=== PATIENT | female | born 1990 | race Caucasian/White ===

== ENCOUNTER 2020-11-19 14:28 | Outpatient (REF) | payer OTHER, SELFPAY | END 2020-11-19 14:29 | disposition home or self-care (01) | LOC: HO.LAB 14:28 | PROVIDERS: Visit Provider Internal Medicine | DX: Z20.822 Contact with and (suspected) exposure to COVID-19 (principal) | CPT/HCPCS: C9803; U0003; U0005 ==

== ENCOUNTER 2020-12-17 14:05 | Outpatient (REF) | payer OTHER, SELFPAY ==
[2020-12-17 14:35] LABS: COVID-19 Test Negative (Negative)
== END 2020-12-17 14:06 | disposition home or self-care (01) ==
LOC: HO.LAB 14:05
PROVIDERS: Visit Provider Internal Medicine
DX: Z20.822 Contact with and (suspected) exposure to COVID-19 (principal)
CPT/HCPCS: 36415; 87635; C9803

== ENCOUNTER 2021-07-04 23:29 | Emergency (ER) | payer OTHER, SELFPAY ==
[2021-07-04 23:53] VITALS: BP 139/85; PULSE 75; RESP 16; TEMP 37.1; O2SAT 99; BMI 35.3
[2021-07-05 00:18] LABS: IDNOW Serial# 9DD0AD1C; Strep A Nucleic Acid Negative (Negative)
[2021-07-05 00:22] LABS: COVID-19 Test Negative (Negative)
--- NOTE | 2021-07-05 00:35 | ED.GENADULT ---
HPI - General Adult General Chief complaint: General Medical Stated complaint: Sore throat; Fever Time Seen by Provider: 07/05/21 00:32 Source: patient Mode of arrival: ambulatory Limitations: no limitations History of Present Illness HPI narrative: Patient with no significant past medical history complaining of sore throat dry cough since yesterday no fever no chills no rash no speech problem Related Data Previous Rx's Medication Instructions Recorded benzonatate 200 mg capsule 200 mg PO TID PRN #14 cap 07/05/21 Allergies Allergy/AdvReac Type Severity Reaction Status Date / Time No Known Allergies Allergy Unverified 04/23/20 16:41 Review of Systems Review of Systems: Yes all other systems are reviewed and are negative [facility] Past Medical History Medical History No known health problems Social History Social History Advance Directives: No Advance Directives Information Provided: No Patient : No Physical Exam Vital Signs: Vital Signs: Last Vital Signs Temp 98.7 F 07/04/21 23:53 Pulse 75 07/04/21 23:53 Resp 16 07/04/21 23:53 BP 139/85 07/04/21 23:53 Pulse Ox 99 07/04/21 23:53 Body Mass Index 35.3 Appearance: Alert. Oriented X3. No acute distress. ENT: Pharynx normal. Oral Mucosa moist Neck: Normal inspection. Neck supple. CVS: Normal heart rate and rhythm. Pulses normal. Respiratory: No respiratory distress. Equal air entry bilateral, no wheezing/rales/rhonchi Abdomen: Soft and nontender. Skin: Skin warm and dry. Normal skin color. Normal skin turgor. Extremities: No lower extremity edema. Neuro: Oriented X 3. Medical Decision Making Lab Data Lab results reviewed: Yes I reviewed the patient's lab results. Labs: Lab Results 07/05/21 07/05/21 Range/Units 00:01 00:01 COVID-19 (NOHEMY) Negative (Negative) COVID-19 Clin Com See Note S. pyogenes GrpA LYLE Negative (Negative) Discharge Plan Discharge Clinical Impression: Viral URI Patient Disposition: Home, Self-Care Instructions: Upper Respiratory Infection (ED) Prescriptions: New benzonatate 200 mg capsule 200 mg PO TID PRN (Reason: cough) Qty: 14 RF: 0
[2021-07-05] MEDS: Benzonatate 100 MG CAPSULE 200 MG PO (00:45)
[2021-07-05] MEDS: Lidocaine HCl Viscous 2 % 15 ML SOLUTION MUCOUS MEM (00:47)
== END 2021-07-05 00:51 | disposition home or self-care (01) ==
PROVIDERS: Emergency Provider Internal Medicine; PCP Internal Medicine
DX: J06.9 Acute upper respiratory infection, unspecified (principal); R50.9 Fever, unspecified; J02.9 Acute pharyngitis, unspecified; Z20.822 Contact with and (suspected) exposure to COVID-19
CPT/HCPCS: 36415; 87635; 87651; 99283

== ENCOUNTER 2021-07-06 06:03 | Emergency (ER) | payer OTHER, SELFPAY ==
[2021-07-06 07:14] VITALS: BP 137/82; PULSE 80; RESP 16; TEMP 36.9; O2SAT 99; BMI 35.3
[2021-07-06 07:39] LABS: COVID-19 Test Negative (Negative); IDNOW Serial# 9DD0AD1C; Strep A Nucleic Acid Negative (Negative)
--- NOTE | 2021-07-06 08:31 | ED_ITS ---
HPI - URI/Sore Throat General Chief Complaint: Upper Respiratory Symptoms Stated Complaint: sore throat Time Seen by Provider: 07/06/21 08:31 Source: patient Mode of arrival: ambulatory Limitations: no limitations History of Present Illness HPI Narrative: 31-year-old female came in for evaluation of sore throat. Patient been having sore throat for the past 4 days, no fever, no chills. No exposure to a sick contact, no recent travel. Patient did not take her vaccination for COVID (patient was instructed to go ahead and schedule for taking the vaccination). Related Data Previous Rx's Medication Instructions Recorded benzonatate 200 mg capsule 200 mg PO TID PRN #14 cap 07/05/21 Allergies Allergy/AdvReac Type Severity Reaction Status Date / Time No Known Allergies Allergy Unverified 04/23/20 16:41 Review of Systems Review of Systems: All other systems are reviewed and are negative Constitutional: Reports as per HPI and Reports no additional constitutional complaints Eyes: Reports as per HPI and Reports no additional eye complaints Reports system reviewed and no additional complaints, except as documented Cardiovascular: Reports as per HPI and Reports no additional cardiovascular complaints Respiratory: Reports as per HPI and Reports no additional respiratory complaints Gastrointestinal: Reports as per HPI and Reports no additional gastrointestinal complaints Genitourinary: Reports no additional female genitourinary complaints Musculoskeletal: Reports no additional musculoskeletal complaints Skin/Breast: Reports system reviewed and no additional complaints, except as docu Psychiatric: Reports no additional psychiatric complaints Endocrine: Reports no additional endocrine complaints Hematologic/Lymphatic: Reports no additional hematologic/lymphatic complaints Allergic/Immunologic: Reports no additional allergic/immunologic complaints Reports system reviewed and no additional complaints, except as documented and Reports Abnormal speech present [facility] Past Medical History Medical History No known health problems Social History Social History Advance Directives: No Advance Directives Information Provided: No Patient : No Physical Exam Vital Signs: Vital Signs: Last Vital Signs Temp 98.5 F 07/06/21 07:14 Pulse 80 07/06/21 07:14 Resp 16 07/06/21 07:14 BP 137/82 07/06/21 07:14 Pulse Ox 99 07/06/21 07:14 Body Mass Index 35.3 Vital signs have been reviewed as appeared to be correct. Blood pressure normal. Heart rate normal. Respiration rate normal. Temperature normal. Oxygen saturation normal. Appearance: Alert. Oriented X3. No acute distress. Head: Normal external exam. Normocephalic. Atraumatic. No Newell signs noted. No raccoon eyes noted Eyes: PERRLA. EOMI. Conjunctiva and sclera normal. Eyelids normal. ENT: TM's Normal. Pharynx normal. Uvula midline. Moist mucous membranes. No trismus noted. No drooling noted. No muffled voice noted. Neck: Normal inspection. Neck supple. FROM. No adenopathy. Thyroid Normal. No meningeal signs. No neck mass noted. CVS: Normal heart rate and rhythm. Heart sound normal. No murmurs noted. Pulses normal throughout. Respiratory: No respiratory distress. Painless inspiration. Breath sounds normal. No wheezes/rales/rhonchi noted. Chest nontender. No accessory muscle usage noted or decreased air movement noted. Abdomen: Soft and nontender. Bowel sounds normal in all 4 quadrants. No distention noted. No organomegaly noted. No visible injury noted. Back: No CVA tenderness. Full range of motion noted. Skin: Skin warm and dry. Normal skin color. Normal skin turgor. No rashes/lesions/lacerations noted. Extremities: No lower extremity edema. Extremities exhibit normal range of motion. Extremities nontender. Neuro: Oriented X 3. Cranial nerve exam: II-XII are grossly intact No motor deficit. No sensory deficit. Reflexes normal. Course Course Course Narrative: Assessment and plan. 31-year-old female came in with a sore throat. Patient is negative for COVID, also negative for strep infection. Patient was reassured, continue with NSAIDs p.r.n. and and follow-up with her PCP. MDM - URI/Sore Throat Medical Records Attestation: I reviewed the patient's medical records. Lab Data Attestation: I reviewed the patient's lab results. Labs: Lab Results 07/06/21 07/06/21 Range/Units 07:17 07:17 COVID-19 (NOHEMY) Negative (Negative) COVID-19 Clin Com See Note S. pyogenes GrpA LYLE Negative (Negative) Discharge Plan Discharge Clinical Impression: Pharyngitis Qualifiers: Pharyngitis/tonsillitis etiology: unspecified etiology Qualified Code(s): J02.9 - Acute pharyngitis, unspecified Patient Disposition: Home, Self-Care Instructions: Pharyngitis (ED) Prescriptions: No Action benzonatate 200 mg capsule 200 mg PO TID PRN (Reason: cough) Qty: 14 RF: 0 Referrals: Brijesh Miller MD [Primary Care Provider] - 2 days
== END 2021-07-06 08:45 | disposition home or self-care (01) ==
PROVIDERS: Emergency Provider Emergency Medicine; PCP Internal Medicine
DX: J02.9 Acute pharyngitis, unspecified (principal); Z20.822 Contact with and (suspected) exposure to COVID-19
CPT/HCPCS: 36415; 87635; 87651; 99283

== ENCOUNTER 2021-07-08 11:24 | Outpatient (REF) | payer OTHER, SELFPAY ==
[2021-07-08 13:51] LABS: MANUAL DIFF FLAG NO
[2021-07-08 14:00] LABS: Basophils Percent Auto 0.3 % (0-2); Eosinophils Absolute Auto 0.1 X10*3/uL (0.0-0.4); Eosinophils Percent Auto 1.2 % (0-4); Hematocrit 36.8 % (37.0-47.0); Hemoglobin 11.8 g/dl (12.0-16.0); Imm Gran Abs Auto 0.02 X10*3/uL (0.00-0.03); Imm Gran Pct Auto 0.2 % (0.0-0.4); Lymphocytes Absolute Auto 2.5 X10*3/uL (1.2-4.9); Lymphocytes Percent Auto 28.6 % (20-40); Mean Corpuscular HGB Conc 32.1 g/dl (31.0-35.0); Mean Corpuscular Hemoglobin 27.1 pg (27.0-33.0); Mean Corpuscular Volume 84.6 fL (80.0-98.0); Mean Platelet Volume 9.7 fL (9.4-12.3); Monocytes Absolute Auto 0.6 X10*3/uL (0.1-1.2); Monocytes Percent Auto 6.6 % (2-11); Neutrophils Absolute Auto 5.4 x10*3/uL (2.0-8.3); Neutrophils Percent Auto 63.1 % (45-73); Platelet Count 269 X10*3/uL (160-400); Red Blood Count 4.35 X10*6/uL (4.20-5.50); Red Cell Distribution Width 12.5 % (11.0-16.0); White Blood Count 8.6 X10*3/uL (4.8-10.8)
[2021-07-08 14:29] LABS: Alanine Aminotransferase 18 U/L (0-31); Alkaline Phosphatase 73 U/L (39-117); Anion Gap 10 (12-20); Aspartate Amino Transferase 17 U/L (5-31); Bilirubin Total 0.4 mg/dL (0.0-1.0); Blood Urea Nitrogen 10 mg/dL (9-16); Calcium 8.7 mg/dL (8.4-10.2); Carbon Dioxide 29 mmol/L (22-29); Chloride 103 mmol/L (96-108); Cholesterol 220 mg/dL; Estimated Glomerular Filt Rate > 60; Glucose Fasting 93 mg/dL (60-99); Potassium 3.8 mmol/L (3.3-5.1); Sodium 138 mmol/L (135-145)
[2021-07-08 14:51] LABS: Free T4 (Free Thyroxine) 0.83 ng/dL (0.71-1.85); Thyroid Stimulating Hormone 2.94 uIU/mL (0.32-4.0)
== END 2021-07-08 11:25 | disposition home or self-care (01) ==
LOC: HO.10HDL 11:24
PROVIDERS: Visit Provider Internal Medicine
DX: Z00.00 Encounter for general adult medical examination without abnormal findings (principal); J06.9 Acute upper respiratory infection, unspecified; Z86.39 Personal history of other endocrine, nutritional and metabolic disease
CPT/HCPCS: 36415; 80053; 82465; 84439; 84443; 85025

== ENCOUNTER 2021-10-18 12:31 | Outpatient (REF) | payer OTHER, SELFPAY ==
[2021-10-20 18:51] LABS: TS Negative Control Passed; TS Panel A 0; TS Panel B 0; TS Positive Control Passed; TSpotTB Negative (Negative)
== END 2021-10-18 12:32 | disposition home or self-care (01) ==
LOC: HO.LAB 12:31
PROVIDERS: PCP Internal Medicine; Visit Provider Internal Medicine
DX: Z02.1 Encounter for pre-employment examination (principal); Z11.1 Encounter for screening for respiratory tuberculosis
CPT/HCPCS: 36415; 86481

== ENCOUNTER 2023-05-11 10:25 | Outpatient (AMB) | payer OTHER, SELFPAY ==
--- NOTE | 2023-05-11 10:25 | MHC.OFFVIS ---
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: No Allergies No Known Allergies Allergy (Verified 05/11/23 10:31) Is last menstrual period known: Yes Last menstrual period: 04/16/23 Post menopausal: No HPI HPI Comments History of Present Illness Details The patient is presenting to discuss different options of control including laparoscopic tubal sterilization PFSH Medical History No known health problems Surgical History History of Hx of cholecystectomy Social History Alcohol intake: current Alcohol intake frequency: holidays/special occasions only Female Reproductive History Menstrual Age of Menarche: 13 Duration of menses: 3-5 days Date of last menstrual period: 04/16/23 control method: none Total pregnancies: 3 Full term: 3 Number of Living Children: 3 Date of last pap smear: 02/14/19 (ASCUS) History of abnormal pap smear: Yes Review of Systems Const All systems reviewed & are unremarkable except as noted in HPI and below Reports as per HPI and Reports no additional complaints GI Reports no additional complaints Reports no additional complaints Physical Exam Vital Signs: Last Vital Signs BP 116/72 05/11/23 10:28 BMI result Body Mass Index 35.1 Assessment & Plan Assessment & Plan (1) Family planning: Code(s): Z30.09 - Encounter for other general counseling and advice on contraception Plan: Discussed with the patient the different options of control including control pills/Nuvaring, DMPA, different types of IUD ?s, sterilization. All the pros, cons, risks and benefits of each were discussed with the patient. The patient decided to go ahead with Mirena IUD, so a more detailed discussion was carried on including types (Progesterone, Copper), mechanism of action, risks (infection, uterine perforation, failure with ectopic , septic AB, dysmenorrhea with Paraguard, others) benefits (efficient contraceptive method, hypo menorrhea with Progesterone IUD, others) GC/CG will be taken next visit and the patient was asked to call day one of next cycle for Mirena IUD insertion. Coding Level of Care Code New Pt Level 3 (32244) Diagnoses Family planning Z30.09
[2023-05-11 10:28] VITALS: BP 116/72; BMI 35.1
== END 2023-05-11 11:56 | disposition home or self-care (01) ==
PROVIDERS: PCP Internal Medicine; Visit Provider Obstetrics & Gynecology
DX: Z30.09 Encounter for other general counseling and advice on contraception (principal)
CPT/HCPCS: 99203

== ENCOUNTER → 2023-05-11 10:25 | Outpatient (BNVA) | payer OTHER, SELFPAY | PROVIDERS: PCP Internal Medicine; Visit Provider Obstetrics & Gynecology ==

== ENCOUNTER 2024-04-30 15:19 | Emergency (ER) | payer OTHER, SELFPAY ==
--- NOTE | 2024-04-30 15:21 | ECG_ITS ---
Test Reason : CHEST PAIN Blood Pressure : / mmHG Vent. Rate : 076 BPM Atrial Rate : 076 BPM P-R Int : 132 ms QRS Dur : 086 ms QT Int : 382 ms P-R-T Axes : 059 053 041 degrees QTc Int : 429 ms Normal sinus rhythm Normal ECG When compared with ECG of 18-JUN-2019 14:41, Nonspecific T wave abnormality has replaced inverted T waves in Inferior leads Nonspecific T wave abnormality no longer evident in Anterolateral leads Referred By: Generic ED Physician Electronically Signed By:SANTIAGO WRIGHT
[2024-04-30 15:36] LABS: MANUAL DIFF FLAG NO
[2024-04-30 15:37] LABS: Basophils Percent Auto 0.4 % (0-2); Eosinophils Absolute Auto 0.1 X10*3/uL (0.0-0.4); Eosinophils Percent Auto 0.8 % (0-4); Hematocrit 37.4 % (37.0-47.0); Hemoglobin 12.9 g/dl (12.0-16.0); Imm Gran Abs Auto 0.02 X10*3/uL (0.00-0.03); Imm Gran Pct Auto 0.3 % (0.0-0.4); Lymphocytes Absolute Auto 2.7 X10*3/uL (1.2-4.9); Lymphocytes Percent Auto 33.7 % (20-40); Mean Corpuscular HGB Conc 34.5 g/dl (31.0-35.0); Mean Corpuscular Hemoglobin 28.5 pg (27.0-33.0); Mean Corpuscular Volume 82.7 fL (80.0-98.0); Monocytes Absolute Auto 0.5 X10*3/uL (0.1-1.2); Monocytes Percent Auto 5.9 % (2-11); Neutrophils Absolute Auto 4.7 x10*3/uL (2.0-8.3); Neutrophils Percent Auto 58.9 % (45-73); Platelet Count 298 X10*3/uL (160-400); Red Blood Count 4.52 X10*6/uL (4.20-5.50)
[2024-04-30 15:56] LABS: Troponin-I High Sensitivity < 2.7 ng/L (<3.5-17.0)
[2024-04-30 15:57] LABS: Alanine Aminotransferase 9 U/L (0-31); Albumin Level 4.2 g/dL (3.5-5.0); Alkaline Phosphatase 57 U/L (39-117); Anion Gap 10 (12-20); Aspartate Amino Transferase 11 U/L (5-31); Bilirubin Total 0.2 mg/dL (0.0-1.0); Blood Urea Nitrogen 8 mg/dL (9-16); Calcium 9.9 mg/dL (8.4-10.2); Carbon Dioxide 26 mmol/L (22-29); Chloride 107 mmol/L (96-108); Estimated Glomerular Filt Rate > 60; Glucose Random 86 mg/dL (60-115); Potassium 3.9 mmol/L (3.3-5.1); Sodium 139 mmol/L (135-145); Total Protein 7.4 g/dL (6.5-8.0)
[2024-04-30 16:27] VITALS: BP 114/59; PULSE 76; RESP 16; TEMP 36.6; O2SAT 100; BMI 30.4
--- NOTE | 2024-04-30 17:06 | ED_ITS ---
HPI - Chest Pain General Chief Complaint: Chest Pain Stated Complaint: chest pain Related Data Allergies Allergy/AdvReac Type Severity Reaction Status Date / Time No Known Allergies Allergy Verified 04/30/24 16:30 [facility] Past Medical History Medical History No known health problems Surgical History History of Hx of cholecystectomy Social History Social History Alcohol intake: current Alcohol intake frequency: holidays/special occasions only Advance Directives: No Advance Directives Information Provided: No Physical Exam 2 Vital Signs: Vital Signs: Last Vital Signs Temp 97.8 F 04/30/24 16:27 Pulse 76 04/30/24 16:27 Resp 16 04/30/24 16:27 BP 114/59 L 04/30/24 16:27 Pulse Ox 100 04/30/24 16:27 O2 Del Method Room Air 04/30/24 16:27 BMI result Body Mass Index 30.4 Course Course Course Narrative: Rapid medical exam performed by Edita Stauffer PA-C. The patient is a 34-year-old female, who is currently , yet to establish care. She presents with right upper chest pain that occurred while folding laundry. On exam, her lungs are clear to auscultation, there was no tachypnea, pain not elicited with palpation of chest wall. She is overall well in appearance. She also has no objective signs symptoms for DVT on exam. Screening labs including troponin, EKG and chest x-ray were already obtained. The patient is in the waiting room pending her full assessment. Reevaluation(s) Reevaluation #1: The patient left without completing their assessment Medical Decision Making Lab Data 04/30/24 15:31 04/30/24 15:31 Labs: Lab Results 04/30/24 Range/Units 15:31 WBC 8.0 (4.8-10.8) X10*3/uL RBC 4.52 (4.20-5.50) X10*6/uL Hgb 12.9 (12.0-16.0) g/dl Hct 37.4 (37.0-47.0) % MCV 82.7 (80.0-98.0) fL MCH 28.5 (27.0-33.0) pg MCHC 34.5 (31.0-35.0) g/dl RDW 12.0 (11.0-16.0) % Plt Count 298 (160-400) X10*3/uL MPV 9.0 L (9.4-12.3) fL Immature Gran % (Auto) 0.3 (0.0-0.4) % Neut % (Auto) 58.9 (45-73) % Lymph % (Auto) 33.7 (20-40) % Sharkey % (Auto) 5.9 (2-11) % Eos % (Auto) 0.8 (0-4) % Baso % (Auto) 0.4 (0-2) % Lymph # (Auto) 2.7 (1.2-4.9) X10*3/uL Sharkey # (Auto) 0.5 (0.1-1.2) X10*3/uL Eos # (Auto) 0.1 (0.0-0.4) X10*3/uL Baso # (Auto) 0.0 (0.0-0.2) X10*3/uL Abs Immat Gran (auto) 0.02 (0.00-0.03) X10*3/uL Absolute Neuts (auto) 4.7 (2.0-8.3) x10*3/uL Absolute Nucleated RBC 0.000 (0.0-0.012) X10*3/uL Nucleated RBC % (auto) 0.0 (0.0-0.2) /100WBC Sodium 139 (135-145) mmol/L Potassium 3.9 (3.3-5.1) mmol/L Chloride 107 (96-108) mmol/L Carbon Dioxide 26 (22-29) mmol/L Anion Gap 10 L (12-20) BUN 8 L (9-16) mg/dL Creatinine 0.62 (0.5-1.4) mg/dL Estim Creat Clear Calc TNP Estimated GFR > 60 Random Glucose 86 (60-115) mg/dL Calcium 9.9 D (8.4-10.2) mg/dL Magnesium 2.0 (1.6-2.6) mg/dL Total Bilirubin 0.2 (0.0-1.0) mg/dL AST 11 (5-31) U/L ALT 9 (0-31) U/L Alkaline Phosphatase 57 (39-117) U/L Troponin I High Sens < 2.7 (<3.5-17.0) ng/L Total Protein 7.4 (6.5-8.0) g/dL Albumin 4.2 (3.5-5.0) g/dL Beta HCG, Quant 318085 mIU/mL Discharge Plan Discharge Clinical Impression: Chest pain Patient Disposition: Left W/O Completing Treatment Discharge Date/Time: 04/30/24 19:45
== END 2024-04-30 19:45 | disposition left against medical advice (07) ==
LOC: HO.ED 19:38
PROVIDERS: Physician Assistant Medical; Emergency Provider Emergency Medicine; PCP Internal Medicine
DX: R07.89 Other chest pain (principal); Z79.899 Other long term (current) drug therapy
CPT/HCPCS: 36415; 80053; 83735; 84484; 84702; 85025; 93005; 99283

== ENCOUNTER 2024-07-09 19:03 | Emergency (ER) | payer OTHER, SELFPAY ==
[2024-07-09 19:59] VITALS: BP 106/62; PULSE 83; RESP 16; TEMP 36.9; O2SAT 99; BMI 32.4
--- NOTE | 2024-07-09 20:03 | ED_ITS ---
HPI - Headache General Chief Complaint: Headache Stated Complaint: Headache 3 x days/ 16 wks preg Time Seen by Provider: 07/09/24 22:39 Source: patient Mode of arrival: ambulatory Limitations: no limitations History of Present Illness ED Provider: Dr. Angel Escobedo HPI Narrative: 34-year-old female , 16 weeks who presents with a headache x3 days. Patient states that the headache came on gradually. She describes it as a constant, sharp pain located behind her eyes, on her forehead and radiates to the back of her head. She had associated nausea with no vomiting. She had dizziness, photophobia and phonophobia. She denied fever but states she did have chills. She denied rhinorrhea sore throat cough. Patient states that she does not have a history of migraines and rarely gets headaches. She denied change in vision, numbness, weakness. Related Data Previous Rx's ?Medication ?Instructions ?Recorded diphenhydramine HCl 25 mg capsule 50 mg (2 x 25 mg) PO Q6H PRN 07/10/24 headache, nausea, vomiting #20 caps metoclopramide HCl 10 mg tablet 10 mg PO Q6H PRN nausea and 07/10/24 (Reglan) vomiting #14 tabs Allergies Allergy/AdvReac Type Severity Reaction Status Date / Time No Known Allergies Allergy Verified 07/09/24 20:01 Review of Systems 2 Review of Systems: Yes all other systems are reviewed and are negative [facility] Past Medical History Medical History No known health problems Surgical History History of Hx of cholecystectomy Social History Social History Alcohol intake: current Alcohol intake frequency: holidays/special occasions only Smoked in Last 30 Days: No Use of substances other than those prescribed or required for medical reasons: No Advance Directives: No Advance Directives Information Provided: No Do you have a plan to hurt others: No Plan Patient : Yes Physical Exam 2 Vital Signs: Vital Signs: Last Vital Signs Temp 98.6 F 07/10/24 01:11 Pulse 90 07/10/24 01:11 Resp 16 07/10/24 01:11 BP 121/63 07/10/24 01:11 Pulse Ox 99 07/10/24 01:11 O2 Del Method Room Air 07/10/24 01:11 BMI result Body Mass Index 32.4 Vital signs were normal Exam: General: Awake, alert in no distress Head: Normocephalic, atraumatic EENT: PERRL, Lids normal, sclera normal, conjunctiva normal, nose normal , ears normal, throat without erythema or exudates Neck: Supple, no adenopathy Lung: breath sounds symmetric, no wheezing, rales or rhonchi Chest: symmetric movement, nontender Heart: regular rate and rhythm, normal S1, S2 no murmurs or rubs Abdomen: soft, non-tender, nondistended, normal bowel sounds Back: no vertebral tenderness, no CVAT Extremities: no deformities, moves all extremities symmetrically Neuro: Awake, alert, oriented, normal speech, cranial nerves intact, moves all extremities symmetrically Psych: Pleasant, cooperative Course Course Course Narrative: This is a rapid medical exam performed by Edita Stauffer PA-C. The patient is a 34-year-old female who is currently 16 weeks who presents with a headache x3 days. Headache is bilateral, retro-orbital, extends over her entire head. Associated phonophobia, photophobia and nausea. Associated generalized malaise, but denies viral syndrome. We will obtain screening labs and a viral panel. Her headache is migrainous in nature. She is neurologically intact, she is not hypertensive. She is stable and can return to the waiting room pending her full medical assessment. Medications Administered Discontinued Medications Generic Name Dose Route Start Last Admin Trade Name Reyna PRN Reason Stop Dose Admin Diphenhydramine HCl 50 mg 07/09/24 23:13 07/09/24 23:31 Diphenhydramine Hcl 50 Mg/Ml Vial IVPUSH 07/09/24 23:14 50 mg ONCE STA Administration Sodium Chloride 1,000 mls @ 999 mls/hr 07/09/24 23:13 07/10/24 00:55 Ns IV 07/10/24 00:13 Infused .Q1H1M STA Infusion Metoclopramide HCl 10 mg 07/09/24 23:13 07/09/24 23:31 Metoclopramide Hcl 10 Mg/2 Ml Vial IVPUSH 07/09/24 23:14 10 mg ONCE STA Administration Medical Decision Making Medical Decision Making [facility] Narrative: 34-year-old female , 16 weeks who presents with a headache x3 days. Patient states that the headache came on gradually. She describes it as a constant, sharp pain located behind her eyes, on her forehead and radiates to the back of her head. She had associated nausea with no vomiting. She had dizziness, photophobia and phonophobia. She denied fever but states she did have chills. She denied rhinorrhea sore throat cough. Patient states that she does not have a history of migraines and rarely gets headaches. She denied change in vision, numbness, weakness. Vital signs were normal. Physical examination was unremarkable. Differential diagnosis: ?Includes but is not limited to headache, migraine headache, preeclampsia, viral syndrome, anemia, electrolyte abnormalities Course: 23:13 My interpretation patient's laboratory evaluation as follows: Anemia with an H&H of 11.9 and 33.6. CMP was normal. COVID-19, influenza and RSV were negative. Quantitative beta-hCG was elevated 45,630. Patient's physical examination was unremarkable and her symptoms are consistent with a migraine syndrome. She was treated with a Reglan 10 mg IV, Benadryl 50 mg IV and normal saline x1 L. 00:54 Patient states that her headache is almost completely resolved and she was feeling significantly better. Patient's presentation is consistent with a migraine-like syndrome. She was prescribed Reglan 10 mg with Benadryl 50 mg every 6 hours as needed for nausea and headache. She was given printed and verbal instructions and discharged home. Admission/Observation Consideration of admission/observation: Escalation of care including admission/observation considered (Yes) Lab Data [facility] Lab Attestation statement: I reviewed the patient's lab results. 07/09/24 20:15 07/09/24 20:15 Labs: Lab Results 07/09/24 Range/Units 20:15 WBC 9.0 (4.8-10.8) X10*3/uL RBC 4.08 L (4.20-5.50) X10*6/uL Hgb 11.9 L (12.0-16.0) g/dl Hct 33.6 L (37.0-47.0) % MCV 82.4 (80.0-98.0) fL MCH 29.2 (27.0-33.0) pg MCHC 35.4 H (31.0-35.0) g/dl RDW 12.4 (11.0-16.0) % Plt Count 279 (160-400) X10*3/uL MPV 9.2 L (9.4-12.3) fL Immature Gran % (Auto) 0.4 (0.0-0.4) % Neut % (Auto) 66.5 (45-73) % Lymph % (Auto) 27.1 (20-40) % Haines % (Auto) 5.1 (2-11) % Eos % (Auto) 0.6 (0-4) % Baso % (Auto) 0.3 (0-2) % Lymph # (Auto) 2.5 (1.2-4.9) X10*3/uL Haines # (Auto) 0.5 (0.1-1.2) X10*3/uL Eos # (Auto) 0.1 (0.0-0.4) X10*3/uL Baso # (Auto) 0.0 (0.0-0.2) X10*3/uL Abs Immat Gran (auto) 0.04 H (0.00-0.03) X10*3/uL Absolute Neuts (auto) 6.0 (2.0-8.3) x10*3/uL Absolute Nucleated RBC 0.000 (0.0-0.012) X10*3/uL Nucleated RBC % (auto) 0.0 (0.0-0.2) /100WBC Sodium 136 (135-145) mmol/L Potassium 3.8 (3.3-5.1) mmol/L Chloride 106 (96-108) mmol/L Carbon Dioxide 23 (22-29) mmol/L Anion Gap 11 L (12-20) BUN 6 L (9-16) mg/dL Creatinine 0.62 (0.5-1.4) mg/dL Estim Creat Clear Calc 113.1 Estimated GFR > 60 Random Glucose 92 (60-115) mg/dL Calcium 8.9 D (8.4-10.2) mg/dL Magnesium 1.9 (1.6-2.6) mg/dL Total Bilirubin 0.2 (0.0-1.0) mg/dL AST 18 (5-31) U/L ALT 14 (0-31) U/L Alkaline Phosphatase 49 (39-117) U/L Total Protein 6.7 (6.5-8.0) g/dL Albumin 3.6 (3.5-5.0) g/dL Beta HCG, Quant 41067 mIU/mL Influenza Type A (PCR) NEGATIVE (Negative) Influenza Type B (PCR) NEGATIVE (Negative) RSV RNA Qual (PCR) NEGATIVE (Negative) SARS-CoV-2 RNA (RT-PCR) NEGATIVE (Negative) Prescription Management I considered prescription management with: Pain Medication (Reglan) Discharge Plan Discharge Clinical Impression: Migraine, First trimester Patient Disposition: Home, Self-Care Additional Instructions: Your blood work revealed mild anemia which is consistent with your otherwise was unremarkable. Your COVID-19, influenza and RSV tests were negative. Your symptoms are consistent with a migraine.I want you to take the following 2 medications together every 6 hours as needed for headache, nausea or vomiting. Reglan (metoclopramide) in 10 mg, 1 pill Benadry (diphenhydramine) l 25 mg, 2 pills After you take these medications, lie down in a dark quiet room and try to fall asleep. ?These medications will make you sleepy, do not drive or work after taking these medications. Follow-up with your doctor in 2 days. Please return to the emergency department if your symptoms get worse or if you develop any symptoms that are concerning to you. Prescriptions: New diphenhydramine HCl 25 mg capsule 50 mg PO Q6H PRN (Reason: headache, nausea, vomiting) Qty: 20 0RF metoclopramide HCl [Reglan] 10 mg tablet 10 mg PO Q6H PRN (Reason: nausea and vomiting) Qty: 14 0RF Interventions: ED Discharge Assessment Last Done: 07/10/24 01:11 Discharge Date/Time: 07/10/24 01:13 Print Language: Mozambican
[2024-07-09 20:21] LABS: MANUAL DIFF FLAG NO
[2024-07-09 20:22] LABS: Basophils Percent Auto 0.3 % (0-2); Eosinophils Absolute Auto 0.1 X10*3/uL (0.0-0.4); Eosinophils Percent Auto 0.6 % (0-4); Hematocrit 33.6 % (37.0-47.0); Hemoglobin 11.9 g/dl (12.0-16.0); Imm Gran Abs Auto 0.04 X10*3/uL (0.00-0.03); Imm Gran Pct Auto 0.4 % (0.0-0.4); Lymphocytes Absolute Auto 2.5 X10*3/uL (1.2-4.9); Lymphocytes Percent Auto 27.1 % (20-40); Mean Corpuscular HGB Conc 35.4 g/dl (31.0-35.0); Mean Corpuscular Hemoglobin 29.2 pg (27.0-33.0); Mean Corpuscular Volume 82.4 fL (80.0-98.0); Mean Platelet Volume 9.2 fL (9.4-12.3); Monocytes Absolute Auto 0.5 X10*3/uL (0.1-1.2); Monocytes Percent Auto 5.1 % (2-11); Neutrophils Percent Auto 66.5 % (45-73); Platelet Count 279 X10*3/uL (160-400); Red Blood Count 4.08 X10*6/uL (4.20-5.50); Red Cell Distribution Width 12.4 % (11.0-16.0)
[2024-07-09 21:10] LABS: Influenza A PCR NEGATIVE (Negative); Influenza B PCR NEGATIVE (Negative); Resp Syncy Virus RNA Qual PCR NEGATIVE (Negative); SARS COV2 PCR INHOUSE NEGATIVE (Negative)
[2024-07-09 21:28] LABS: Alanine Aminotransferase 14 U/L (0-31); Albumin Level 3.6 g/dL (3.5-5.0); Alkaline Phosphatase 49 U/L (39-117); Anion Gap 11 (12-20); Aspartate Amino Transferase 18 U/L (5-31); Bilirubin Total 0.2 mg/dL (0.0-1.0); Blood Urea Nitrogen 6 mg/dL (9-16); Calcium 8.9 mg/dL (8.4-10.2); Carbon Dioxide 23 mmol/L (22-29); Chloride 106 mmol/L (96-108); Creatinine Clr Calc Pharmacy 113.1; Estimated Glomerular Filt Rate > 60; Glucose Random 92 mg/dL (60-115); HCG Quantitative 45630 mIU/mL; Magnesium 1.9 mg/dL (1.6-2.6); Potassium 3.8 mmol/L (3.3-5.1); Sodium 136 mmol/L (135-145); Total Protein 6.7 g/dL (6.5-8.0)
[2024-07-09 22:40] VITALS: BP 107/59; PULSE 88; RESP 16; TEMP 36.8; O2SAT 97
--- NOTE | 2024-07-09 22:57 | MHC.EDTECH ---
this tech took over care @1491, when rounding on pt the pt was sitting in their stretcher w/visitors at bedside and no needs made apparent at this time
[2024-07-09] MEDS: diphenhydrAMINE HCL 50 MG/ML VIAL IVPUSH (23:31)
[2024-07-09] MEDS: Metoclopramide HCl 10 MG/2 ML VIAL IVPUSH (23:31)
[2024-07-09] MEDS: 0.9 % Sodium Chloride 1,000 ML 999 ML IV (23:33)
[2024-07-10 00:01] VITALS: BP 121/63; PULSE 90; RESP 16; TEMP 37; O2SAT 99
[2024-07-10 01:11] VITALS: BP 121/63; PULSE 90; RESP 16; TEMP 37; O2SAT 99
== END 2024-07-10 01:13 | disposition home or self-care (01) ==
PROVIDERS: Physician Assistant Medical; Emergency Provider Emergency Medicine Emergency Medical Services; PCP Internal Medicine
DX: O26.892 Other specified pregnancy related conditions, second trimester (principal); O26.92 Pregnancy related conditions, unspecified, second trimester; G43.909 Migraine, unspecified, not intractable, without status migrainosus; R11.0 Nausea; Z3A.16 16 weeks gestation of pregnancy; Z03.818 Encounter for observation for suspected exposure to other biological agents ruled out; Z79.899 Other long term (current) drug therapy
CPT/HCPCS: 0241U; 36415; 80053; 83735; 84702; 85025; 96361; 96374; 96375; 99284; J1200; J2765

== ENCOUNTER 2025-05-07 23:15 | Emergency (ER) | payer SELFPAY ==
--- NOTE | ~2025-05-07 | XR_ITS ---
CLINICAL HISTORY: cough sob 2 view chest x-ray Comparison: None provided Findings: No consolidation or effusion. Heart size is normal. No acute fracture. IMPRESSION: 1. No acute findings. This document has been electronically signed by: Devonte Joiner MD on 05/08/2025 00:56:24
[2025-05-07 23:31] VITALS: BP 113/72; PULSE 78; RESP 18; TEMP 36.8; O2SAT 99; BMI 29.7
[2025-05-07 23:56] LABS: IDNOW Serial# 58CA691E; Strep A Nucleic Acid Negative (Negative)
[2025-05-08 00:27] LABS: Resp Syncy Virus RNA Qual PCR NEGATIVE (Negative); SARS COV2 PCR INHOUSE NEGATIVE (Negative)
--- OUTSIDE RECORDS SUMMARY | 2025-05-08 00:57 | XMS_ITS | Clinical Summary ---
Author Organization [facility] Address [address] [place] [phone] Phone Care Team Providers Care Orthotic Assistant Name Role Phone Brijesh Miller MD Primary Care Provider Allergies No known active allergies Medications ondansetron (ZOFRAN) 4 MG tablet Take 1 tablet (4 mg total) by mouth every 8 (eight) hours as needed for nausea. 30 tablet 3 10/18/2023 Active oxyCODONE-aceta minophen (PERCOCET) 5-325 mg per tablet Take 1 tablet by mouth every 4 (four) hours as needed for pain (specific location in comments). Partial fill ok 30 tablet 10/18/2023 Active cyclobenzaprine (FLEXERIL) 5 MG tablet Take 1 tablet (5 mg total) by mouth 3 (three) times a day as needed. 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 Not on candice e 06/05/2023 Are you concerned about learning? Not on file 06/05/2023 No 06/05/2023 No 06/05/2023 Digital Access Answer Date Recorded No 06/05/2023 No 06/05/2023 Reliable internet access at home? Not on file 06/05/2023 Device with a working camera? Not on file Comments No Sex and Gender Information Value Date Recorded Sex Assigned at Not on file Legal Sex Female 3:26 PM EDT Gender Identity Not on file Sexual Orientation Not on file Last Filed Vital Signs Vital Sign Reading Time Taken Comments Blood Pressure 122/81 11/02/2023 2:30 PM EDT Pulse 97 11/02/2023 12:45 PM EDT Temperature 36.3 C (97.3 F) 11/02/2023 2:30 PM EDT Respiratory Rate 15 11/02/2023 12:45 PM EDT Oxygen Saturation 95% 11/02/2023 2:30 PM EDT Inhaled Oxygen Concentration - - Weight 70.3 kg (155 lb) 11/02/2023 7:04 AM EDT Height 149.9 cm (4' 11 ) 11/02/2023 7:04 AM EDT Body Mass Index 31.31 11/02/2023 7:04 AM EDT Plan of Treatment Health Maintenance Due Date Last Done Comments Adult Td,Tdap Booster 1992 DEPRESSION SCREENING 2004 SMOKING Hx and SMOKELESS TOBACCO SCREENING 01/26/2005 HEPATITIS C SCREENING 01/26/2010 HIV ONE-TIME SCREENING (18-6 5 YEARS) 01/26/2010 PAP SMEAR 01/26/2013 INFLUENZA VACCINE (#1) 2025 06/25/2019 COVID-19 VACCINE (3 2024-2 6 season) 2025 12/01/2021, 10/08/2021 HEPATITIS A VACCINES Aged Out No long er eligible based on patient's age to complete this topic HIB VACCINES Aged Out No longer eligi ble based on patient's age to complete this topic MENINGOCOCCAL VACCINES (ACWY) Aged Out No longer eligible based on patient's age to complete this topic MENINGOCOCCAL VACCINES (B) Aged Out N o longer eligible based on patient's age to complete this topic PNEUMOCOCCAL VACCINES (0-49 years) Aged Out No longer eligible b ased on patient's age to complete this topic Medical Devices Not on file Insurance [employer] [place] [employer] [place] [facility] [facility] [employer] [employer] Advance Directives For more information, please contact: [phone] (9AM - 5PM Stephie[facility], Monday-Monday) * Full Code (Latest Code Status on File) Date Activated Date Inactivated Comments 11/02/2023 7:27 AM Question Answer Comments Code Status Confirmed With: Patient Care Teams Orthotic Assistant Relationship Specialty Start Date End Date Brijesh Miller MD [address] [place] [address] [place] [address] PCP - General Internal Medicine 06/05/23 Additional Source Comments The information contained in this document represents components of the legal health record. It is not the complete legal health record.[facility]
--- OUTSIDE RECORDS SUMMARY | 2025-05-08 00:57 | XMS_ITS | Encounter Summary ---
Author Organization [facility] Address [address] [place] [phone] Phone Care Team Providers Care Speech Language Pathologist Assistant Name Role Phone Brijesh Miller MD Primary Care Provider Encounter Details Date Type Department Care Team ([facility] st Contact Info) Description 11/02/2023 Procedure Pass OR Admitting Dept - Virtual Department [address] [place] [id number] Social History Tobacco Use Types Packs/Day Years Used Date Smoking Tobacco: Former Cigarettes 2020 Smokeless Tobacco: Never Alcohol Use Standard Drinks/Week Comments Yes 3 [...] on file Sexual Orientation Not on file documented as of this encounter Plan of Treatment Not on file documented as of this encounter Visit Diagnoses Not on filedocumented in this encounter Care Teams Speech Language Pathologist Assistant Relationship Specialty Start Date End Date Brijesh Miller MD [address] [place] [address] Dr [place]O shaw [id number] PCP - General Internal Medicine 06/05/23 documented as of this encounter Additional Source Comments The information contained in this document represents components of the legal health record. It is not the complete legal health record.[facility]
--- NOTE | 2025-05-08 01:43 | PC.NURSE ---
pt awaiting to be seen by provider.
[2025-05-08] MEDS: oxyCODONE HCl Immed Release 5 MG TABLET PO (01:51)
--- NOTE | 2025-05-08 01:51 | ED.GENADULT ---
HPI - General Adult General Chief complaint: General Medical Stated complaint: THROAT PAIN Time Seen by Provider: 05/08/25 01:04 Source: patient Mode of arrival: ambulatory Limitations: no limitations History of Present Illness ED Provider: DR. Terrazas HPI narrative: 35-year-old female history of currently came in for evaluation of upper respiratory symptoms, nasal congestion, bilateral ears pain, sore throat and burning sensation in the throat, dry cough, +exposure to a sick contacts at home. Related Data Previous Rx's ?Medication ?Instructions ?Recorded diphenhydramine HCl 25 mg capsule 50 mg (2 x 25 mg) PO Q6H PRN 07/10/24 headache, nausea, vomiting #20 caps metoclopramide HCl 10 mg tablet 10 mg PO Q6H PRN nausea and 07/10/24 (Reglan) vomiting #14 tabs Allergies Allergy/AdvReac Type Severity Reaction Status Date / Time No Known Allergies Allergy Verified 05/07/25 23:36 Review of Systems Review of Systems: All other systems are reviewed and are negative Constitutional: Reports as per HPI and Reports no additional constitutional complaints Eyes: Reports as per HPI and Reports no additional eye complaints Reports system reviewed and no additional complaints, except as documented Cardiovascular: Reports as per HPI and Reports no additional cardiovascular complaints Respiratory: Reports as per HPI and Reports no additional respiratory complaints Gastrointestinal: Reports as per HPI and Reports no additional gastrointestinal complaints Genitourinary: Reports no additional female genitourinary complaints Musculoskeletal: Reports no additional musculoskeletal complaints Skin/Breast: Reports system reviewed and no additional complaints, except as docu Psychiatric: Reports no additional psychiatric complaints Endocrine: Reports no additional endocrine complaints Hematologic/Lymphatic: Reports no additional hematologic/lymphatic complaints Allergic/Immunologic: Reports no additional allergic/immunologic complaints Reports system reviewed and no additional complaints, except as documented and Reports Abnormal speech present [facility] Past Medical History Medical History No known health problems Surgical History History of Hx of cholecystectomy Social History Social History Alcohol intake: current Alcohol intake frequency: does not drink Smoked in Last 30 Days: No Use of substances other than those prescribed or required for medical reasons: No Advance Directives: No Physical Exam ED Vital Signs: Vital Signs - 24 hr 05/07/25 23:31 Temperature 98.2 F Pulse Rate 78 Respiratory Rate 18 Blood Pressure 113/72 Pulse Oximetry 99 Oxygen Delivery Method Room Air BMI result Body Mass Index 29.7 Vital signs have been reviewed and appear to be correct. Blood pressure elevated. Heart rate normal. Respiratory rate normal. Temperature normal. Oxygen saturation normal. Appearance: Alert. Oriented X3. No acute distress. Head: Normal external exam. Normocephalic. Atraumatic. No Newell signs noted. No raccoon eyes noted Eyes: PERRLA. EOMI. Conjunctiva and sclera normal. Eyelids normal. ENT: TM's Normal. Pharynx normal. Uvula midline. Moist mucous membranes. No trismus noted. No drooling noted. No muffled voice noted. Neck: Normal inspection. Neck supple. FROM. No adenopathy. Thyroid Normal. No meningeal signs. No neck mass noted. CVS: Normal heart rate and rhythm. Heart sound normal. No murmurs noted. Pulses normal throughout. Respiratory: No respiratory distress. Painless inspiration. Breath sounds normal. No wheezes/rales/rhonchi noted. Chest nontender. No accessory muscle usage noted or decreased air movement noted. Abdomen: Soft and nontender. Bowel sounds normal in all 4 quadrants. No distention noted. No organomegaly noted. No visible injury noted. Back: No CVA tenderness. Full range of motion noted. Skin: Skin warm and dry. Normal skin color. Normal skin turgor. No rashes/lesions/lacerations noted. Extremities: No lower extremity edema. Extremities exhibit normal range of motion. Extremities nontender. Neuro: Oriented X 3. Cranial nerve exam: II-XII are grossly intact No motor deficit. No sensory deficit. Reflexes normal. Course Reevaluation(s) Reevaluation #1: Upper respiratory symptoms, negative strep rapid test, also negative influenza/RSV/COVID. Negative chest x-ray for acute infection. No evidence of otitis media. Patient was instructed to take Tylenol to help with pain and while . Time: 01:56 Medications Administered Discontinued Medications Generic Name Dose Route Start Last Admin Trade Name Freq PRN Reason Stop Dose Admin Ibuprofen 800 mg 05/08/25 01:18 05/08/25 01:51 Ibuprofen 800 Mg Tablet PO 05/08/25 01:19 800 mg ONCE ONE Administration Oxycodone HCl 5 mg 05/08/25 01:18 05/08/25 01:51 Oxycodone Hcl Immed Release 5 Mg Tablet PO 05/08/25 01:19 5 mg ONCE ONE Administration Medical Decision Making Differential Diagnosis Differential Diagnoses: The differential diagnosis associated with the presentation includes (Pneumonia, pneumothorax, pleural effusion, viral upper respiratory infection, strep pharyngitis, otitis media.) Admission/Observation Consideration of admission/observation: Escalation of care including admission/observation considered Lab Data MDM Lab Attestation statement: I reviewed the patient's lab results. Labs: Lab Results 05/07/25 Range/Units 23:43 Influenza Type A (PCR) NEGATIVE (Negative) Influenza Type B (PCR) NEGATIVE (Negative) RSV RNA Qual (PCR) NEGATIVE (Negative) SARS-CoV-2 RNA (RT-PCR) NEGATIVE (Negative) S. pyogenes GrpA LYLE Negative (Negative) Independent Interpretation I performed an independent interpretation of an: Plain X-Ray (Chest: No acute findings) Radiology Impression Discussion of test interpretation with radiology: I have reviewed the radiologist's reading. Discharge Plan Discharge Clinical Impression: Acute viral pharyngitis, Viral upper respiratory infection Patient Disposition: Home, Self-Care Instructions: Pharyngitis (ED) Additional Instructions: Take [id number] Tylenol 500 mg tablet every 6 hours if needed for sore throat. Prescriptions: No Action diphenhydramine HCl 25 mg capsule 50 mg PO Q6H PRN (Reason: headache, nausea, vomiting) Qty: 20 0RF metoclopramide HCl [Reglan] 10 mg tablet 10 mg PO Q6H PRN (Reason: nausea and vomiting) Qty: 14 0RF Print Language: Macedonian
--- NOTE | 2025-05-08 02:08 | PC.NURSE ---
Medicated per mar, reviewed discharge instruction with pt, pt verbalized understanding, no sign of distress upon discharge, pt has a steady gait, in the waiting room, awaiting ride.
[2025-05-08 02:09] VITALS: BP 125/78; PULSE 78; RESP 20; TEMP 36.7; O2SAT 98
== END 2025-05-08 02:10 | disposition home or self-care (01) ==
PROVIDERS: Emergency Provider Emergency Medicine
DX: J02.8 Acute pharyngitis due to other specified organisms (principal); J06.9 Acute upper respiratory infection, unspecified; R09.81 Nasal congestion; H92.03 Otalgia, bilateral; R05.9 Cough, unspecified; R06.02 Shortness of breath; Z11.52 Encounter for screening for COVID-19
CPT/HCPCS: 71046; 87637; 87651; 99283; 99284

== ENCOUNTER → 2025-05-07 23:55 | Outpatient (BNV) | payer SELFPAY | PROVIDERS: Visit Provider Radiology Diagnostic Radiology | DX: R05.9 Cough, unspecified (principal); R06.02 Shortness of breath | CPT/HCPCS: 71046 ==